=== PATIENT | female | born 1970 | race Caucasian/White ===

== ENCOUNTER 2019-09-30 08:26 | Outpatient (CLI) | payer BC, SELFPAY ==
--- NOTE | ~2019-09-30 | MM_ITS ---
EXAMINATION: MM screening alan BI w almita HISTORY: Screening mammogram, family history of breast cancer in her mother. TECHNIQUE: Craniocaudal and mediolateral oblique 3-D tomosynthesis images were obtained and synthetic 2-D images were generated. CAD analysis was submitted and interpreted. COMPARISON: 09/14/2018, 08/31/2018, 08/02/2017, 07/28/2017, 07/20/2016 BREAST PARENCHYMAL COMPOSITION: The breasts are heterogeneously dense, which may obscure small masses . FINDINGS: There is no evidence of suspicious mass, calcification, or architectural distortion to sugg est malignancy in either breast. There has been no suspicious interval change. IMPRESSION: 1. No mammographic evidence of malignancy. 2. Recommend routine screening mammography in one year. BI-RADS Category 1: Negative Reviewed, dictated and finalized at location A.
== END 2019-09-30 08:27 | disposition home or self-care (01) ==
LOC: ANHIMG 08:31
PROVIDERS: PCP Family Medicine; Visit Provider Obstetrics & Gynecology
DX: Z12.31 Encounter for screening mammogram for malignant neoplasm of breast (principal)
CPT/HCPCS: 77063; 77067

== ENCOUNTER 2021-01-22 00:34 | Day surgery (SDC) | payer BC, SELFPAY ==
[2021-01-04 14:47] VITALS: BMI 27.1
[2021-01-22 08:16] VITALS: BP 132/83; PULSE 95; RESP 20; TEMP 36.6; O2SAT 100
[2021-01-22] MEDS: LACTATED RINGERS 1,000 ML 150 ML IV CONT (08:24)
--- NOTE | 2021-01-22 08:27 | P.PNAN_ITS ---
Anes - Initial Pre Proc Eval Procedure: Operation Date: 01/22/21 09:00 Proposed Procedures p Screening Colonoscopy - Marcos Dewitt MD Date/Time: 01/22/21 08:27 Surgeon: Marcos Dewitt MD Pre Op Diagnosis: neoplasm screening Patient Data Age: 50 Gender: F Height: 1.73 m Weight: 80.3 kg Last Vital Signs Temp 36.6 C 01/22/21 08:16 Pulse 95 01/22/21 08:16 Resp 20 01/22/21 08:16 BP 132/83 01/22/21 08:16 Pulse Ox 100 01/22/21 08:16 Allergies Allergy/AdvReac Type Severity Reaction Status Date / Time Sulfa (Sulfonamide Allergy Mild Hives Verified 01/22/21 08:15 Antibiotics) Home Medications Medication Instructions Recorded Confirmed Type No Home Medications 01/22/19 01/04/21 History Patient hx anesthesia problems: none Family hx anesthesia problems: other (low bp) Results Review: All pre-operative results and documents have been reviewed as part of the pre-operative evaluation. [facility] Past Medical History Medical History Missed Mixed hyperlipidemia 01/25 [facility] 10 year risk 1% Vaginal delivery x2 Surgical History Surgical History H/O unilateral salpingectomy 2009 S/P dilatation and curettage 2006 Family History Family History Father Thyroid disease Unknown Heart disease Father Family history of hypothyroidism Father Family history of thyroid disease Mother Breast cancer Other Family history of cardiovascular disease Family history of hypercholesterolemia Social History Social History Smoking status: Never smoker Tobacco type: cigarettes Second hand tobacco smoke exposure: No Smoking end date: 03/20/04 Alcohol intake: current Drinks per week: 6 Substance use: never Living arrangements: with family Spiritual care concerns: No Anes - Eval Final PreProcedure Day of Procedure 01/22/21 08:27 Patient weight: overweight Heart: regular rate and rhythm Lungs: clear to auscultation Airway: Mallampati scale class 1 Neurological: alert and oriented Last oral intake: >/= 8 hours ASA classification: II Emergent: no Anesthetic plan: proceed Anesthesia type and monitoring: general GIVS and standard monitoring Results Review: All pre-operative results and documents have been reviewed as part of the pre-operative evaluation. Informed Consent: The patient's anesthetic plan and its attendant risks and benefits were discussed with the patient/family/POA. Questions were solicited and answers provided to the satisfaction of the patient/family/POA.
--- NOTE | 2021-01-22 08:50 | PM.HPGS ---
History of Present Illness History of Present Illness Consent: Risks, benefits, and alternatives have been discussed and questions answered. Patient agrees to proceed with procedure. Chief complaint: neoplasm screening Narrative: Jazz Ovalle is a 50 year old female here for first screening colonoscopy Review of Systems Constitutional: Constitutional: Denies headache(s) and Denies weakness Eyes: Eyes: Denies blurry vision ENT: Reports Normal hearing present, Denies headache(s) and Denies neck pain Cardiovascular: Cardiovascular: Denies chest pain and Denies dyspnea Respiratory: Respiratory: Denies dyspnea Gastrointestinal: Gastrointestinal: Reports no additional gastrointestinal complaints Genitourinary: Genitourinary: Denies dysuria Musculoskeletal: Musculoskeletal: Denies neck pain Integumentary/Breasts: Skin/Breast: Denies dry skin Neurologic: Reports Normal hearing present, Denies headache(s) and Denies weakness Psychiatric: Psychiatric: Denies anxiety Endocrine: Endocrine: Denies change in body appearance Hematologic/Lymphatic: Hematologic/Lymphatic: Denies easy bleeding Allergic/Immunologic: Allergic/Immunologic: Denies urticaria PMFSH Past Medical History Medical History (Updated 01/22/21 @ 08:51 by Marcos Dewitt MD) Colon cancer screening Missed Mixed hyperlipidemia 01/25 [facility] 10 year risk 1% Vaginal delivery x2 Surgical History Surgical History H/O unilateral salpingectomy 2009 S/P dilatation and curettage 2006 Family History Family History Father Thyroid disease Unknown Heart disease Father Family history of hypothyroidism Father Family history of thyroid disease Mother Breast cancer Other Family history of cardiovascular disease Family history of hypercholesterolemia Social History Social History Smoking status: Never smoker Tobacco type: cigarettes Second hand tobacco smoke exposure: No Smoking end date: 03/20/04 Alcohol intake: current Drinks per week: 6 Substance use: never Living arrangements: with family Spiritual care concerns: No Meds Home Medications and Allergies Home Medications Medication Instructions Recorded Confirmed Type No Home Medications 01/22/19 01/04/21 History Allergies Allergy/AdvReac Type Severity Reaction Status Date / Time Sulfa (Sulfonamide Allergy Mild Hives Verified 01/22/21 08:15 Antibiotics) Vital Signs Vital Signs - 24 hr 01/22/21 08:16 Temperature 97.9 F Pulse Rate 95 Respiratory Rate 20 Blood Pressure 132/83 Pulse Oximetry 100 Exam Const: General: comfortable and no acute distress HENMT: General nose exam: Normal nares present Eyes: General: appearance normal, both eyes and all related structures Neck: Neck: no JVD Resp: Auscultation: clear to auscultation bilaterally Cardio: Rate: regular rate Rhythm: regular rhythm GI: Inspection: non-distended GI Palp: Yes Soft to palpation Skin: General skin exam: normal color Neuro: General: gait normal Speech: normal speech Extrem: General: normal to inspection Psych: Mental Status: mental status grossly normal Assessment and Plan Assessment and plan (1) Colon cancer screening: Code(s): Z12.11 - Encounter for screening for malignant neoplasm of colon Status: Acute Assessment and Plan: colonoscopy
[2021-01-22 09:10] VITALS: BP 93/78; PULSE 83; RESP 12; O2SAT 100
[2021-01-22 09:20] VITALS: BP 107/78; PULSE 74; RESP 21; O2SAT 100
[2021-01-22 09:30] VITALS: BP 124/86; PULSE 70; RESP 15; O2SAT 100
== END 2021-01-22 09:40 | disposition home or self-care (01) ==
PROVIDERS: PCP Family Medicine; Visit Provider Internal Medicine Gastroenterology
PROC: 0DJD8ZZ Inspection of Lower Intestinal Tract, Via Natural or Artificial Opening Endoscopic (ICD-10-PCS; CPT 45378; principal; 2021-01-22 09:00)
DX: Z12.11 Encounter for screening for malignant neoplasm of colon (principal); K57.30 Diverticulosis of large intestine without perforation or abscess without bleeding; K64.8 Other hemorrhoids; D12.5 Benign neoplasm of sigmoid colon; E78.2 Mixed hyperlipidemia
CPT/HCPCS: 45385; 88305; J2704; J7120

== ENCOUNTER 2021-01-26 15:32 | Outpatient (CLI) | payer BC, SELFPAY ==
--- NOTE | ~2021-01-26 | MM_ITS ---
EXAMINATION: MM screening alan BI w almita HISTORY: Screening mammogram TECHNIQUE: Craniocaudal and mediolateral oblique 3-D tomosynthesis images were obtained and synthetic 2-D images were generated. CAD analysis was submitted and interpreted. COMPARISON: 09/30/2019 bilateral screening mammogram diagnostic left mammogram 08/31/2018 bilateral screening mammogram BREAST PARENCHYMAL COMPOSITION: The breasts are heterogeneously dense, which may obscure small masses FINDINGS: There is no evidence of suspicious mass, calcification, or architectural distortion to sugg est malignancy in either breast. There has been no suspicious interval change. IMPRESSION: 1. No mammographic evidence of malignancy. 2. Recommend routine screening mammography in one year. BI-RADS Category 1: Negative Reviewed, dictated and finalized at location A. MILLER OPERATOR
== END 2021-01-26 15:33 | disposition home or self-care (01) ==
LOC: ANHIMG 15:34
PROVIDERS: PCP Family Medicine; Visit Provider Obstetrics & Gynecology
DX: Z12.31 Encounter for screening mammogram for malignant neoplasm of breast (principal)
CPT/HCPCS: 77063; 77067

== ENCOUNTER 2022-03-28 10:04 | Outpatient (CLI) | payer BC, SELFPAY ==
--- NOTE | ~2022-03-28 | MM_ITS ---
EXAMINATION: MM screening [facility] BI w almita HISTORY: Screening mammogram TECHNIQUE: Craniocaudal and mediolateral oblique 3-D tomosynthesis images were obtained and synthetic 2-D images were generated. CAD analysis was submitted and interpreted. COMPARISON: 01/26/2021, 09/30/2019, 09/14/2018 bilateral screening mammogram examinations BREAST PARENCHYMAL COMPOSITION: The breasts are heterogeneously dense, which may obscure small masses . FINDINGS: Subtle indeterminate grouped microcalcifications are suggested in the outer lower left [address] st (craniocaudal Tomosynthesis image 24/85). Diagnostic left mammogram with magnification views is re commended. Otherwise there is no evidence of suspicious mass, calcification, or architectural distortion to sug gest malignancy in either breast. There has been no other suspicious interval change. IMPRESSION: 1. Left breast subtle microcalcifications, lower outer quadrant 2. Diagnostic left mammogram with magnification views is recommended BI-RADS Category 0: Incomplete: Needs additional imaging evaluation. Reviewed, dictated and finalized at location A. NT ACQUISITION PROJECT MANAGER
== END 2022-03-28 10:05 | disposition home or self-care (01) ==
LOC: ANHIMG 10:05
PROVIDERS: PCP Family Medicine; Visit Provider Obstetrics & Gynecology
DX: Z12.31 Encounter for screening mammogram for malignant neoplasm of breast (principal); R92.8 Other abnormal and inconclusive findings on diagnostic imaging of breast
CPT/HCPCS: 77063; 77067

== ENCOUNTER 2022-04-13 13:05 | Outpatient (CLI) | payer BC, SELFPAY ==
--- NOTE | ~2022-04-13 | MMUS_ITS ---
EXAMINATION: MM diagnostic alan LT w almita, US breast LT complete HISTORY: Left breast subtle microcalcifications, lower outer quadrant on 04/07/2022 screening mammogra m TECHNIQUE: ML 3-D tomosynthesis images of the left breast were performed and synthetic 2-D images wer e generated. CAD analysis was submitted and interpreted. Magnification MLO and CC views. High resolut ion complete left breast ultrasound examination including all 4 quadrants and subareolar area was per formed. COMPARISON: 03/28/2022 bilateral screening mammogram FINDINGS: MAMMOGRAPHIC FINDINGS: Minimal benign calcification is noted. No suspicious microcalcifications. No suspicious mass or archi tectural distortion, skin thickening or retraction is detected. ULTRASOUND: At 12:00 6 cm from the nipple there is an irregular hypoechoic approximately 6.4 x 11.5 x 10.7 mm are a with some internal vascularity but no suspicious shadowing. Ultrasound-guided biopsy is recommended . There are occasional scattered parallel circumscribed hypoechoic areas without suspicious shadowing o r internal vascularity. No suspicious mass or shadowing is detected. IMPRESSION: 1. Indeterminate irregular hypoechoic solid area measuring 6.4 x 11.5 x 10.7 mm, with some internal v ascularity, at left breast 12:00 position 6 cm from nipple 2. Ultrasound-guided biopsy is recommended at left breast 12:00 6 cm from nipple BI-RADS category 4, suspicious findings. ETING DATABASE COORDINATOR Reviewed, dictated and finalized at location A. Dr. Arango telephoned the report and ultrasound-guided biopsy recommendation of left breast at 12:00 on 04/13/[address] Green's [place] . IMPRESSION: 1. Indeterminate irregular hypoechoic solid area measuring 6.4 x 11.5 x 10.7 mm , with some internal vascularity, at left breast 12:00 position 6 cm from nippl e 2. Ultrasound-guided biopsy is recommended at left breast 12:00 6 cm from nippl e BI-RADS category 4, suspicious findings.
== END 2022-04-13 13:06 | disposition home or self-care (01) ==
LOC: ANHIMG 13:06
PROVIDERS: PCP Family Medicine; Visit Provider Obstetrics & Gynecology
DX: R92.8 Other abnormal and inconclusive findings on diagnostic imaging of breast (principal)
CPT/HCPCS: 76641; 77061; 77065; G0279

== ENCOUNTER 2022-10-05 01:22 | Day surgery (SDC) | payer BC, SELFPAY ==
[2022-09-26 15:30] VITALS: BMI 27.0
--- NOTE | 2022-09-26 15:35 | PC.NURSE ---
Report to the Outpatient Waiting Room, entrance under the green pavilion located off [facility], at time 0900 on date 10/05/22. Planned Procedure Time: 1100. Time changes happen often and if your time is changed the preop area will call you the afternoon before. - You and your visitor will be asked to self-screen and do not enter if you have any COVID symptoms. - A mask is optional within the hospital at this time. Patients may have clear liquids (water, carbonated beverages, clear teas, apple juice) until 3 hours prior to surgery with a maximum of 20 ounces. - No food from midnight until time of surgery Take the following medications with a SIP of water the morning of surgery: N/A DO NOT STOP ANY OF YOUR OTHER PRESCRIPTION MEDICATIONS PRIOR TO SURGERY ?EXCEPT THE FOLLOWING Medications to discontinue per physician: N/A Date to take last dose: N/A Please no make-up, nail welsh, hairspray, perfume, deodorant, or body powder the day of surgery. No jewelry (including any body piercings) or valuables the day of surgery, leave them at home. Please take a shower or bath the night before, or the morning of, surgery with an antibacterial soap. Wear comfortable, loose fitting clothing. - Jewelry must be removed prior to entering the operating room. Rings and piercings that are not removed may be cut off. - The hospital will not accept responsibility for valuables. - Please leave all valuables, including medications, at home the day of surgery. If you are going home after surgery, a licensed company truck driver must drive you home. - NO public transportation without another adult if you receive anesthesia. - We recommend that an adult stay with you for 24 hours following discharge. - We also recommend that you do not drive, make important decision, drink alcoholic beverages, or take any drugs that were not prescribed by your health care provider for at least 24 hours after your discharge time. Follow any additional instructions given to you from your surgeon. If you or anyone in your household have experienced Covid symptoms in the past week, please notify your surgeon or the nurse liaison at the phone number below for possible testing. Telephone instructions given to PT - ELLA AYALA and asked if any additional questions and then verbalized understanding. Patient advised to call surgeon office or pre surgery nurse liaison [phone] if any additional questions.
--- NOTE | 2022-10-04 16:12 | PM.IMHP ---
H&P: HPI History of Present Illness Date/Time: 10/04/22 16:12 Chief Complaint: Menorrhagia Narrative: Patient with a long history of menorrhagia. She desires treatment with endometrial ablation. She declines IUD or hormonal options. She has had an endometrial biopsy which was normal. Review of Systems Review of Systems: All systems reviewed & are unremarkable except as noted in HPI and below Cardiovascular: Cardiovascular: Reports no additional cardiovascular complaints, Denies chest pain and Denies dyspnea Respiratory: Respiratory: Reports no additional respiratory complaints and Denies dyspnea Gastrointestinal: Gastrointestinal: Reports abdominal pain, Denies change in bowel habits, Denies diarrhea, Denies nausea and Denies vomiting Genitourinary: Genitourinary: Reports pelvic pain Musculoskeletal: Musculoskeletal: Reports back pain Integumentary/Breasts: Skin/Breast: Reports system reviewed and no additional complaints, except as docu Neurologic: Reports system reviewed and no additional complaints, except as documented PMF Past Medical History Medical History Colon cancer screening Missed Mixed hyperlipidemia 01/25 [facility] 10 year risk 1% Vaginal delivery x2 Surgical History Surgical History H/O unilateral salpingectomy 2009 S/P dilatation and curettage 2006 Family History Family History Father Thyroid disease Unknown Heart disease Father Family history of hypothyroidism Father Family history of thyroid disease Mother Breast cancer Other Family history of cardiovascular disease Family history of hypercholesterolemia Social History Social History Smoking status: Former smoker Tobacco type: cigarettes Second hand tobacco smoke exposure: No Smoking end date: 03/20/04 Additional smoking assessment comments: FORMER [employer] SMOKER Alcohol intake: current Drinks per week: 5 Substance use: never Substance use type: does not use Living arrangements: with family Spiritual care concerns: No Meds Home Medications and Allergies Home Medications Medication Instructions Recorded Confirmed Type No Home Medications 10/28/21 09/26/22 History Allergies Allergy/AdvReac Type Severity Reaction Status Date / Time Sulfa (Sulfonamide Allergy Mild Hives Verified 09/26/22 15:30 Antibiotics) Exam Const: Orientation/consciousness: oriented to person and oriented to place HENMT: Head: normal to inspection Eyes: General: appearance normal, both eyes and all related structures Resp: Effort & Inspection: normal respiratory effort Auscultation: clear to auscultation bilaterally Cardio: Rate: regular rate Rhythm: regular rhythm GI: Inspection: normal to inspection GI Palp: No Rebound tenderness present Neuro: General: oriented to person and oriented to place Cognition (Neuro): normal cognition Extrem: General: normal to inspection Psych: Appearance: grossly normal and well kempt Assessment and Plan Assessment and plan (1) Menorrhagia: Code(s): N92.0 - Excessive and frequent menstruation with regular cycle Status: Acute Assessment and Plan: Will proceed with hysteroscopy with endometrial ablation possible dilation and curettage possible removal of any lesion if present with of either.
[2022-10-05 09:10] VITALS: BP 142/68; PULSE 79; RESP 16; TEMP 36.7; O2SAT 100
[2022-10-05 09:27] VITALS: BMI 29.3
--- NOTE | 2022-10-05 09:40 | WPDHPUPDATE1 ---
History and Physical Update Update Date/Time: 10/05/22 09:40 History and Physical has been reviewed, including an updated exam of the patient. There are NO changes in the patient's condition. Risks, benefits, and alternatives have been discussed and questions answered. Patient agrees to proceed with procedure.
[2022-10-05] MEDS: ACETAMINOPHEN 500 MG TABLET 1000 MG PO (09:41)
--- NOTE | 2022-10-05 09:47 | WPDANESEPPF ---
Anes - Initial Pre Proc Eval Procedure: Operation Date: 10/05/22 11:00 Proposed Procedures p Hysteroscopy, Dilation and Curettage with Becki Endometrial Ablation, Removal of any Endometrial Lesion, If Necessary - Omega Green MD Date/Time: 10/05/22 09:47 Surgeon: Omega Green MD Pre Op Diagnosis: Excessive & Frequent Menstruation Patient Data Age: 52 Gender: F Height: 1.73 m Weight: 87.5 kg Last Vital Signs Temp 36.7 C 10/05/22 09:10 Pulse 79 10/05/22 09:10 Resp 16 10/05/22 09:10 BP 142/68 H 10/05/22 09:10 Pulse Ox 100 10/05/22 09:10 O2 Del Method Room Air 10/05/22 09:10 Allergies Allergy/AdvReac Type Severity Reaction Status Date / Time Sulfa (Sulfonamide Allergy Mild Hives Verified 09/26/22 15:30 Antibiotics) Home Medications Medication Instructions Recorded Confirmed Type No Home Medications 10/28/21 09/26/22 History Patient hx anesthesia problems: none Family hx anesthesia problems: none Results Review: All pre-operative results and documents have been reviewed as part of the pre-operative evaluation. [facility] Past Medical History Medical History Colon cancer screening Missed Mixed hyperlipidemia 01/25 [facility] 10 year risk 1% Vaginal delivery x2 Surgical History Surgical History H/O unilateral salpingectomy 2009 S/P dilatation and curettage 2006 Family History Family History Father Thyroid disease Unknown Heart disease Father Family history of hypothyroidism Father Family history of thyroid disease Mother Breast cancer Other Family history of cardiovascular disease Family history of hypercholesterolemia Social History Social History Smoking status: Former smoker Tobacco type: cigarettes Second hand tobacco smoke exposure: No Smoking end date: 03/20/04 Additional smoking assessment comments: FORMER SOCIAL SMOKER Alcohol intake: current Drinks per week: 5 Substance use: never Substance use type: does not use Living arrangements: with family Spiritual care concerns: No Anes - Eval Final PreProcedure Day of Procedure 10/05/22 09:47 Patient weight: overweight Heart: regular rate and rhythm Lungs: clear to auscultation Airway: Mallampati scale class II Neurological: alert and oriented Last oral intake: >/= 8 hours ASA classification: II Emergent: no Anesthetic plan: proceed Anesthesia type and monitoring: general GIVS and standard monitoring Results Review: All pre-operative results and documents have been reviewed as part of the pre-operative evaluation. Informed Consent: The patient's anesthetic plan and its attendant risks and benefits were discussed with the patient/family/POA. Questions were solicited and answers provided to the satisfaction of the patient/family/POA.
[2022-10-05] MEDS: LACTATED RINGERS 1,000 ML 30 ML IV CONT (10:00)
[2022-10-05] MEDS: ceFAZolin 2 GM/D5W 50 ML 2 GM/50 ML BAG IVPB (10:03)
[2022-10-05] MEDS: LIDOCAINE HCL 1% LOCAL INJ 20 ML VIAL 10 ML INFILTRATE (10:21)
[2022-10-05] MEDS: KETOROLAC 30 MG/ML VIAL (*BKC) IV PUSH (10:27)
[2022-10-05 10:40] VITALS: BP 107/58; PULSE 84; RESP 16; O2SAT 98
--- NOTE | 2022-10-05 10:45 | W.PM.PROC2 ---
Procedure Note - Detailed Date of Procedure 10/05/22 Pre-op Diagnosis Excessive & Frequent Menstruation Post-op Diagnosis Same Procedure Performed Diagnostic hysteroscopy and Becki endometrial ablation. Surgeon Omega Green MD Anesthesia MAC and Local Indications Persistant heavy periods Findings Normal uterine cavity, ut sound to 9 cm, cavity length 5cm, cervix length 4 cm, good eschar. Description of Procedure After informed consent was obtained patient was taken to the operating room and adequate IV sedation was administered. Attention was turned to the vagina. Speculum was inserted. Single-tooth tenaculum placed on the anterior lip of the cervix. The uterus was sounded to 9cm. The cervix was dilated to an 8 Baker dilator. The cervical length was 4 . The hysteroscope was inserted into the cavity. The findings were a normal uterine cavity. The hysteroscope was removed. The Becki ablation instrument was inserted into the cavity. Cavity assessment was performed and confirmed intact. The ablation was enabled. After 120 seconds the Becki stopped. The ablation instrument was removed. The hysteroscope was inserted and there was noted to be good eschar with the cavity. The hysteroscope was removed the single-tooth tenaculum was removed hemostasis was noted at the tenaculum site. Sponge count correct. The patient taken to recovery in stable condition. Estimated Blood Loss -5.0 Drains No Packing No Pathology None sent Complications No immediate complications Condition Stable Disposition Same day [facility] Billing Surgery - Charge Forward: Surgery Billing
[2022-10-05 11:10] VITALS: BP 103/59; PULSE 55; RESP 16
== END 2022-10-05 11:26 | disposition home or self-care (01) ==
PROVIDERS: PCP Family Medicine; Visit Provider Obstetrics & Gynecology
PROC: 0U5B8ZZ Destruction of Endometrium, Via Natural or Artificial Opening Endoscopic (ICD-10-PCS; CPT 58563; principal; 2022-10-05 11:00)
DX: N92.0 Excessive and frequent menstruation with regular cycle (principal); E78.2 Mixed hyperlipidemia; Z87.891 Personal history of nicotine dependence
CPT/HCPCS: 58563; A9270; J0690; J1885; J2250; J2405; J2704; J3010; J7120

== ENCOUNTER 2023-07-26 15:43 | Outpatient (CLI) | payer BC, SELFPAY ==
[2023-07-26 21:08] LABS: Alanine Aminotransferase 28 U/L (6-35); Albumin Level 4.4 g/dL (3.5-5.1); Alkaline Phosphatase 58 U/L (38-126); Anion Gap 9 mmol/L (4-12); Aspartate Amino Transferase 29 U/L (14-36); Bilirubin,Total 0.5 mg/dL (0.2-1.3); Blood Urea Nitrogen 18 mg/dL (7-17); Calcium 9.7 mg/dL (8.4-10.2); Carbon Dioxide 24 mmol/L (22-30); Chloride 107 mmol/L (98-107); Cholesterol 259 mg/dL (0-200); Estimated Glomerular Filt Rate > 60; Glucose 92 mg/dL (65-110); HDL Direct 54 mg/dL; Potassium 3.6 mmol/L (3.4-5.0); Sodium 140 mmol/L (137-145); Triglycerides 395 mg/dL (<150)
[2023-07-26 21:23] LABS: LDL Cholesterol Direct 159 mg/dL
== END 2023-07-26 15:44 | disposition home or self-care (01) ==
LOC: ANHGOSHLAB 15:44
PROVIDERS: PCP Family Medicine; Visit Provider Family Medicine
DX: E78.2 Mixed hyperlipidemia (principal)
CPT/HCPCS: 36415; 80053; 80061; 84443